=== PATIENT | female | born 1995 | race Hispanic/Latino ===

== ENCOUNTER 2017-08-25 12:29 | Emergency (ER) | payer OTHER ==
[2017-08-25 12:47] VITALS: BP 122/67
--- NOTE | 2017-08-25 13:09 | Emergency Department Report ---
Chief Complaint: Abdominal Pain Stated Complaint: LEFT FLANK/LOWER BACK PAIN - HPI History of Present Illness: 22-year-old female past medical history anxiety/depression presents with complaint of suprapubic pain and some mild right-sided flank pain for several days. Some accompanying nausea and vomiting. Patient's last menstrual period . Patient has not had an ultrasound during this . She has new onset vaginal spotting since yesterday - ROS Review of Systems: , vaginal spotting, nausea, suprapubic pain, flank - Exam Vital Signs: Vital Signs 08/25/17 12:44 Temperature 98.7 F Pulse Rate 91 H Respiratory 18 Rate Blood Pressure 122/67 O2 Sat by Pulse 99 Oximetry Physical Exam: Right-sided flank pain, suprapubic pain MSE screening note: Focused history and physical exam performed. Due to findings the following was ordered: Screening Assessment/Plan/Differential Dx: , vaginal spotting, urinary symptoms 1- This initial assessment/diagnostic orders/clinical plan/ treatment(s) is/are subject to change based on pt's health status, clinical progression and re- assessment by fellow clinical providers in the ED. Further treatment and workup at subsequent clinical provers discretion. Patient/guardians urged not to elope from ED as their condition may be serious if not clinically assessed and managed. 2-urinalysis, urine culture, basic labs, pelvic ultrasound, ultrasound kidney bladder ED Disposition for MSE Condition: Stable Instructions: Abdominal Pain (ED)
[2017-08-25 13:31] LABS: Bacteria,Urine 1+ /HPF (Negative); Bilirubin,Urine NEG (Negative); Blood,Urine NEG (Negative); Color,Urine Yellow (Yellow); Mucus,Urine 3+ /HPF; Urobilinogen,Urine < 2.0 mg/dL (<2.0)
[2017-08-25 14:35] LABS: Basophils % (Auto) 0.1 % (0.0-1.8); Eosinophils % (Auto) 0.4 % (0.0-4.3); Hematocrit 36.2 % (30.3-42.9); Hemoglobin 11.9 gm/dl (10.1-14.3); Lymphocytes # (Auto) 1.7 K/mm3 (1.2-5.4); Mean Corpuscular HGB Conc 33 % (30-34); Mean Corpuscular Hemoglobin 26 pg (28-32); Mean Corpuscular Volume 79 fl (79-97); Monocytes # (Auto) 0.8 K/mm3 (0.0-0.8); Monocytes % (Auto) 9.3 % (0.0-7.3); Platelet Count 188 K/mm3 (140-440); Red Blood Count 4.58 M/mm3 (3.65-5.03); Red Cell Distribution Width 17.5 % (13.2-15.2)
[2017-08-25 14:57] LABS: Alanine Aminotransferase 10 units/L (7-56); Albumin 3.9 g/dL (3.9-5); BUN/Creatinine Ratio 20; Blood Urea Nitrogen 8 mg/dL (7-17); Hemolysis Index 1
== END 2017-08-25 19:43 | disposition left against medical advice (07) ==
LOC: ED 12:29
DX: M54.5 Low back pain (principal); Z53.21 Procedure and treatment not carried out due to patient leaving prior to being seen by health care provider
CPT/HCPCS: 36415; 80053; 81001; 83690; 84702; 84703; 85025; 86900; 86901; 87086

== ENCOUNTER 2018-11-09 18:50 | Emergency (ER) | payer SELFPAY ==
--- NOTE | 2018-11-09 19:31 | Emergency Department Report ---
Blank Doc - Documentation Documentation: This is a 23-year-old female that presents with sore throat and cough. This initial assessment/diagnostic orders/clinical plan/treatment(s) is/are subject to change based on patient's health status, clinical progression and re- assessment by fellow clinical providers in the ED. Further treatment and workup at subsequent clinical providers discretion. Patient/guardians urged not to elope from the ED as their condition may be serious if not clinically assessed and managed. Initial orders include: 1- Patient sent to [facility] for further evaluation and treatment 2- cxr 3- strep swab
[2018-11-09 19:33] VITALS: BP 125/62
[2018-11-09] MEDS ORDERED: PROVENTIL IH ONE (19:47)
[2018-11-09] MEDS ORDERED: DELTASONE PO ONE (19:47)
[2018-11-09] MEDS ORDERED: TYLENOL PO ONE (19:47)
[2018-11-09 20:20] LABS: HCG Qualitative,Urine Negative (Negative)
--- NOTE | 2018-11-09 20:27 | Emergency Department Report ---
- General Chief Complaint: Sore Throat Stated Complaint: COUGH/THROAT PAIN/HEADACHE Time Seen by Provider: 11/09/18 19:29 Source: patient Mode of arrival: Ambulatory Limitations: No Limitations - History of Present Illness Initial Comments: Patient is a 23-year-old female history of resistance or cough wheezing sore throat 3 days not improved with albuterol inhaler patient states nocturnal fever no fever noted at this time maximum temperature record patient in no respiratory distress at this time tolerating by mouth intake without nausea vomiting MD Complaint: fever, sore throat, rhinorrhea, nasal congestion, sinus pain Onset/Timin -: days(s) Severity: moderate Severity scale (0 -10): 4 Quality: burning, sharp Consistency: constant Improves With: nothing Worsens With: activity Associated Symptoms: fever, chills, myalgias, cough. denies: diaphoresis, headache, chest pain, nausea, vomiting, diarrhea, dysuria, confusion, right sweats, epistaxis, hoarseness, ear pain Treatments Prior to Arrival: none - Related Data Previous Rx's Medication Instructions Recorded Last Taken Type ALBUTEROL Inhaler (OR & NICU) 2 puff IH QID PRN #1 inhalation 11/09/18 Unknown Rx [ProAir HFA Inhaler] Azithromycin [Zithromax Z-MARIYA] 250 mg PO DAILY #6 tablet 11/09/18 Unknown Rx Ibuprofen [Motrin 800 MG tab] 800 mg PO Q8HR PRN #30 tablet 11/09/18 Unknown Rx predniSONE [Deltasone] 40 mg PO DAILY 5 Days #10 tablet 11/09/18 Unknown Rx Allergies Allergy/AdvReac Type Severity Reaction Status Date / Time citalopram [From Celexa] Allergy Hives Verified 11/09/18 19:00 ED Review of Systems ROS: Stated complaint: COUGH/THROAT PAIN/HEADACHE Other details as noted in HPI Constitutional: denies: chills, fever Eyes: denies: eye pain, eye discharge, vision change ENT: ear pain, throat pain, congestion. denies: dental pain, hearing loss, epistaxis Respiratory: denies: cough, shortness of breath, wheezing Cardiovascular: denies: chest pain, palpitations Endocrine: no symptoms reported Gastrointestinal: denies: abdominal pain, nausea, vomiting, diarrhea Genitourinary: denies: urgency, dysuria, frequency, hematuria, discharge, dyspareunia Musculoskeletal: denies: back pain, joint swelling, arthralgia Skin: denies: rash, lesions Neurological: headache. denies: weakness, paresthesias, vertigo Psychiatric: denies: anxiety, depression, auditory hallucinations, visual hallucinations, other Hematological/Lymphatic: denies: easy bleeding, easy bruising ED Past Medical Hx - Past Medical History Previous Medical History?: Yes Hx Psychiatric Treatment: Yes (Depression, ADHD, Insomnia) Additional medical history: Bronchitis - Surgical History Past Surgical History?: No - Social History Smoking Status: Current Every Day Smoker Substance Use Type: Marijuana - Medications Home Medications: Home Medications Medication Instructions Recorded Confirmed Last Taken Type ALBUTEROL Inhaler (OR & NICU) 2 puff IH QID PRN #1 inhalation 11/09/18 Unknown Rx [ProAir HFA Inhaler] Azithromycin [Zithromax Z-MARIYA] 250 mg PO DAILY #6 tablet 11/09/18 Unknown Rx Ibuprofen [Motrin 800 MG tab] 800 mg PO Q8HR PRN #30 tablet 11/09/18 Unknown Rx predniSONE [Deltasone] 40 mg PO DAILY 5 Days #10 tablet 11/09/18 Unknown Rx ED Physical Exam - General Limitations: No Limitations General appearance: alert, in no apparent distress - Head Head exam: Present: atraumatic, normocephalic - Eye Eye exam: Present: normal appearance, PERRL, EOMI Pupils: Present: normal accommodation - ENT ENT exam: Present: normal orophraynx, mucous membranes moist, normal external ear exam - Expanded ENT Exam Expanded Ear exam: Present: normal external inspection Mouth exam: Absent: trismus Teeth exam: Present: normal inspection Throat exam: Positive: tonsillar erythema, tonsillomegaly, other (uvual midline no stridor ). Negative: tonsillar exudate, R peritonsillar mass, L peritonsillar mass - Neck Neck exam: Present: normal inspection, tenderness, meningismus, full ROM. Absent: lymphadenopathy, thyromegaly - Respiratory Respiratory exam: Present: normal lung sounds bilaterally, wheezes, rhonchi. Absent: respiratory distress, stridor, chest wall tenderness - Cardiovascular Cardiovascular Exam: Present: regular rate, normal rhythm, normal heart sounds. Absent: systolic murmur, diastolic murmur, rubs, gallop - GI/Abdominal GI/Abdominal exam: Present: soft, normal bowel sounds. Absent: distended, tenderness, guarding, rebound, rigid, bruit, hernia - Rectal Rectal exam: Present: deferred - Extremities Exam Extremities exam: Present: normal inspection, full ROM, normal capillary refill. Absent: tenderness, joint swelling - Back Exam Back exam: Present: normal inspection, full ROM. Absent: tenderness, CVA tenderness (R), CVA tenderness (L), muscle spasm, paraspinal tenderness, rash noted - Neurological Exam Neurological exam: Present: alert, oriented X3, CN II-XII intact, normal gait - Psychiatric Psychiatric exam: Present: normal affect - Skin Skin exam: Present: warm, dry, intact, normal color. Absent: rash ED Course Vital Signs 11/09/18 19:30 Temperature 98.8 F Pulse Rate 100 H Respiratory 16 Rate Blood Pressure 125/62 O2 Sat by Pulse 100 Oximetry ED Medical Decision Making - Radiology Data Radiology results: report reviewed, image reviewed Ordering Physician: CHALO LEDESMA NP Date of Service: 11/09/18 Procedure(s): XR chest routine 2V Accession Number(s): [id number] cc: CHALO LEDESMA NP Fluoro Time In Minutes: CHEST PA AND LATERAL VIEWS INDICATION: cough. COMPARISON: None FINDINGS: Support devices: None Heart: Normal Lungs/Pleura: No acute pulmonary or pleural findings. IMPRESSION: 1. No significant abnormality. Signer Name: Julian Wiggins MD Signed: 11/09/2018 8:43 PM Workstation Name: [id number] Transcribed By: TM Dictated By: Julian Wiggins MD Electronically Authenticated By: Julian Wiggins MD Signed Date/Time: 11/09/182042 DD/ 41 - Medical Decision Making This is URI, Bronchitis, cxr: normal no infiltrates no opacites, plan albuterol inhaler, augment, ibuprofen, prednisone follow [facility] the pcp in 2-3 days return to ed if symptoms worsen. pt verbalziedag agreement and understanding of same. k Critical care attestation.: If time is entered above; I have spent that time in minutes in the direct care of this critically ill patient, excluding procedure time. ED Disposition Clinical Impression: Bronchitis Pharyngitis Qualifiers: Pharyngitis/tonsillitis etiology: unspecified etiology Qualified Code(s): J02.9 - Acute pharyngitis, unspecified Disposition: DC-01 TO HOME OR SELFCARE Is pt being admited?: No Does the pt Need Aspirin: No Condition: Stable Instructions: Chronic Bronchitis (ED), Pharyngitis (ED) Prescriptions: predniSONE [Deltasone] 40 mg PO DAILY 5 Days #10 tablet Ibuprofen [Motrin 800 MG tab] 800 mg PO Q8HR PRN #30 tablet PRN Reason: pain fever ALBUTEROL Inhaler (OR & NICU) [ProAir HFA Inhaler] 2 puff IH QID PRN #1 in halation PRN Reason: Shortness Of Breath Azithromycin [Zithromax Z-MARIYA] 250 mg PO DAILY #6 tablet Referrals: RANDAL BROOKS MD [Primary Care Provider] - 3-5 Days Forms: Work/School Release Form(ED) Time of Disposition: 21:00
--- NOTE | 2018-11-09 20:47 | XRay Report ---
CHEST PA AND LATERAL VIEWS INDICATION: cough. COMPARISON: None FINDINGS: Support devices: None Heart: Normal Lungs/Pleura: No acute pulmonary or pleural findings. IMPRESSION: 1. No significant abnormality. Signer Name: Julian Wiggins MD Signed: 11/09/2018 8:43 PM Workstation Name: [id number]
== END 2018-11-09 21:18 | disposition home or self-care (01) ==
LOC: ED 18:50
DX: J40 Bronchitis, not specified as acute or chronic (principal); J02.9 Acute pharyngitis, unspecified; F32.9 Major depressive disorder, single episode, unspecified; G47.00 Insomnia, unspecified; F17.200 Nicotine dependence, unspecified, uncomplicated; F12.10 Cannabis abuse, uncomplicated; Z88.8 Allergy status to other drugs, medicaments and biological substances; Z79.1 Long term (current) use of non-steroidal anti-inflammatories (NSAID); Z79.899 Other long term (current) drug therapy
CPT/HCPCS: 71046; 81025; 87116; 87430; 94640; 99284; J7512

== ENCOUNTER 2019-11-06 16:13 | Emergency (ER) | payer SELFPAY ==
[2019-11-06 16:57] VITALS: BP 141/72
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
== END 2019-11-06 17:15 | disposition left against medical advice (07) ==
LOC: ED 16:13
DX: M25.561 Pain in right knee (principal); Z53.21 Procedure and treatment not carried out due to patient leaving prior to being seen by health care provider